=== PATIENT | female | born 1965 ===

== ENCOUNTER 2016-11-10 11:43 | Emergency (ER) | payer MEDICARE, OTHER ==
--- NOTE | 2016-11-10 12:50 | Emergency Department Report ---
ED Extremity Problem HPI - General Chief complaint: Extremity Injury, Lower Stated complaint: RT FOOT SWOLLEN Time Seen by Provider: 11/10/16 12:49 Source: patient Mode of arrival: Ambulatory Limitations: Physical Limitation - Related Data Previous Rx's Medication Instructions Recorded Last Taken Type Azithromycin [Zithromax TAB] 500 mg PO QDAY #3 tablet 09/24/13 Unknown Rx HYDROcodone/APAP 5-325 [[place] 1 each PO Q6HR PRN #8 tablet 09/24/13 Unknown Rx 5/325 mg] Levofloxacin [Levaquin] 500 mg PO QDAY #10 tablet 06/09/14 Unknown Rx Sertraline [Zoloft] 50 mg PO QAM #30 tablet 06/09/14 Unknown Rx Ciprofloxacin HCl [Cipro] 500 mg PO Q12H #14 tab 08/21/14 Unknown Rx HYDROcodone/APAP 5-325 [[place] 1 each PO Q6HR PRN #16 tablet 08/21/14 Unknown Rx 5-325 mg TAB] Diclofenac Sodium 50 mg PO Q8HRT PRN #30 tablet.dr 02/08/16 Unknown Rx Indomethacin [Indocin] 25 mg PO Q8H #21 capsule 11/10/16 Unknown Rx Prednisone [predniSONE 10 mg 10 mg PO .TAPER #1 tab.ds.pk 11/10/16 Unknown Rx (6-Day Pack, 21 Tabs)] Allergies Allergy/AdvReac Type Severity Reaction Status Date / Time Penicillins Allergy Rash Verified 11/10/16 12:02 ED Review of Systems ROS: Stated complaint: RT FOOT SWOLLEN Other details as noted in HPI ED Past Medical Hx - Past Medical History Hx Psychiatric Treatment: Yes (bipolar / [facility]) Hx Asthma: Yes - Surgical History Additional Surgical History: TUBAL LIGATION - Social History Smoking Status: Light Tobacco Smoker Substance Use Type: Alcohol, Prescribed - Medications Home Medications: Home Medications Medication Instructions Recorded Confirmed Last Taken Type Azithromycin [Zithromax TAB] 500 mg PO QDAY #3 tablet 09/24/13 02/08/16 Unknown Rx HYDROcodone/APAP 5-325 [[place] 1 each PO Q6HR PRN #8 tablet 09/24/13 02/08/16 Unknown Rx 5/325 mg] Levofloxacin [Levaquin] 500 mg PO QDAY #10 tablet 06/09/14 02/08/16 Unknown Rx Sertraline [Zoloft] 50 mg PO QAM #30 tablet 06/09/14 02/08/16 Unknown Rx Ciprofloxacin HCl [Cipro] 500 mg PO Q12H #14 tab 08/21/14 02/08/16 Unknown Rx HYDROcodone/APAP 5-325 [[place] 1 each PO Q6HR PRN #16 tablet 08/21/14 02/08/16 Unknown Rx 5-325 mg TAB] Diclofenac Sodium 50 mg PO Q8HRT PRN #30 tablet. 02/08/16 Unknown Rx Indomethacin [Indocin] 25 mg PO Q8H #21 capsule 11/10/16 Unknown Rx Prednisone [predniSONE 10 mg 10 mg PO .TAPER #1 tab.ds.pk 11/10/16 Unknown Rx (6-Day Pack, 21 Tabs)] ED Physical Exam - General Limitations: Physical Limitation ED Course Vital Signs 11/10/16 11/10/16 12:07 15:25 Temperature 98.4 F 98.1 F Pulse Rate 85 80 Respiratory 18 18 Rate Blood Pressure 121/57 Blood Pressure 118/60 [Right] O2 Sat by Pulse 100 100 Oximetry Critical care attestation.: If time is entered above; I have spent that time in minutes in the direct care of this critically ill patient, excluding procedure time. ED Disposition Clinical Impression: Gouty arthritis of toe of right foot Disposition: DISCHARGED TO HOME OR SELFCARE Is pt being admited?: No Condition: Stable Instructions: Acute Gouty Arthritis (ED) Prescriptions: Indomethacin [Indocin] 25 mg PO Q8H #21 capsule Prednisone [predniSONE 10 mg (6-Day Pack, 21 Tabs)] 10 mg PO .TAPER #1 tab.ds.pk Referrals: PRIMARY CARE, [Primary Care Provider] - 3-5 Days Forms: Work/School Release Form(ED)
[2016-11-10] MEDS ORDERED: TORADOL IM ONE (12:59)
[2016-11-10] MEDS ORDERED: DECADRON IV ONE (12:59)
[2016-11-10] MEDS ORDERED: DECADRON IM ONE (13:14)
--- NOTE | 2016-11-10 15:19 | Emergency Department Report ---
Entered by LEON TSANG, acting as scribe for OLGA LIDIA MOORE PA. ED Lower Extremity HPI - General Chief Complaint: Extremity Injury, Lower Stated Complaint: RT FOOT SWOLLEN Time Seen by Provider: 11/10/16 12:49 Source: patient Mode of arrival: Ambulatory Limitations: Physical Limitation - History of Present Illness Initial Comments: 51 year old female presents to the ED c/o right foot pain that began 4 days ago. Associated symptoms include swelling, but she denies fever, chills, cough, and pleuritic chest pain. Pt states that her pain radiates to her right knee and she has ambulatory improvement with a cane. She has a PMHx of asthma and psychiatric treatment. Reports EtOH abuse. Pt notes that she is allergic to Penicillin. MD Complaint: foot injury (right), other (atraumatic right foot pain swelling and redness) Onset/Timin -: days(s) Injury: Foot: Right Place: other (psychiatric facility) Severity: moderate Severity scale (0 -10): 7 Improves With: immobilization, other (walking with a cane) Worsens With: weight bearing (partially), movement, palpation Other Symptoms: other (swelling and pain radiates to her right knee) Associated Symptoms: swelling, able to partially bear weight, ambulatory (with use of a cane) - Related Data Previous Rx's Medication Instructions Recorded Last Taken Type Azithromycin [Zithromax TAB] 500 mg PO QDAY #3 tablet 09/24/13 Unknown Rx HYDROcodone/APAP 5-325 [[place] 1 each PO Q6HR PRN #8 tablet 09/24/13 Unknown Rx 5/325 mg] Levofloxacin [Levaquin] 500 mg PO QDAY #10 tablet 06/09/14 Unknown Rx Sertraline [Zoloft] 50 mg PO QAM #30 tablet 06/09/14 Unknown Rx Ciprofloxacin HCl [Cipro] 500 mg PO Q12H #14 tab 08/21/14 Unknown Rx HYDROcodone/APAP 5-325 [[place] 1 each PO Q6HR PRN #16 tablet 08/21/14 Unknown Rx 5-325 mg TAB] Diclofenac Sodium 50 mg PO Q8HRT PRN #30 tablet. 02/08/16 Unknown Rx Indomethacin [Indocin] 25 mg PO Q8H #21 capsule 11/10/16 Unknown Rx Prednisone [predniSONE 10 mg 10 mg PO .TAPER #1 tab.ds.pk 11/10/16 Unknown Rx (6-Day Pack, 21 Tabs)] Allergies Allergy/AdvReac Type Severity Reaction Status Date / Time Penicillins Allergy Rash Verified 11/10/16 12:02 ED Review of Systems Comment: All other systems reviewed and negative Constitutional: denies: chills, fever Respiratory: denies: cough, orthopnea, shortness of breath, SOB with exertion, SOB at rest, wheezing Cardiovascular: denies: chest pain (pleuritic chest pain), palpitations, dyspnea on exertion Gastrointestinal: denies: abdominal pain, nausea, vomiting, diarrhea Musculoskeletal: joint swelling (right foot), other (right foot pain that radiates to her right knee) Skin: other (mild redness to right foot) Neurological: denies: headache ED Past Medical Hx - Past Medical History Hx Psychiatric Treatment: Yes (bipolar / [facility]) Hx Asthma: Yes - Surgical History Additional Surgical History: TUBAL LIGATION - Social History Smoking Status: Light Tobacco Smoker Substance Use Type: Alcohol, Prescribed - Medications Home Medications: Home Medications Medication Instructions Recorded Confirmed Last Taken Type Azithromycin [Zithromax TAB] 500 mg PO QDAY #3 tablet 09/24/13 02/08/16 Unknown Rx HYDROcodone/APAP 5-325 [[place] 1 each PO Q6HR PRN #8 tablet 09/24/13 02/08/16 Unknown Rx 5/325 mg] Levofloxacin [Levaquin] 500 mg PO QDAY #10 tablet 06/09/14 02/08/16 Unknown Rx Sertraline [Zoloft] 50 mg PO QAM #30 tablet 06/09/14 02/08/16 Unknown Rx Ciprofloxacin HCl [Cipro] 500 mg PO Q12H #14 tab 08/21/14 02/08/16 Unknown Rx HYDROcodone/APAP 5-325 [[place] 1 each PO Q6HR PRN #16 tablet 08/21/14 02/08/16 Unknown Rx 5-325 mg TAB] Diclofenac Sodium 50 mg PO Q8HRT PRN #30 tablet. 02/08/16 Unknown Rx Indomethacin [Indocin] 25 mg PO Q8H #21 capsule 11/10/16 Unknown Rx Prednisone [predniSONE 10 mg 10 mg PO .TAPER #1 tab.ds.pk 11/10/16 Unknown Rx (6-Day Pack, 21 Tabs)] ED Physical Exam - General Limitations: Physical Limitation General appearance: alert, in no apparent distress - Head Head exam: Present: atraumatic, normocephalic - Eye Eye exam: Present: normal appearance - ENT ENT exam: Present: mucous membranes moist - Neck Neck exam: Present: normal inspection - Respiratory Respiratory exam: Present: normal lung sounds bilaterally. Absent: respiratory distress - Cardiovascular Cardiovascular Exam: Present: regular rate - GI/Abdominal GI/Abdominal exam: Present: soft. Absent: distended - Expanded Lower Extremity Exam Right Knee exam: Present: normal inspection, full ROM. Absent: tenderness, swelling, ecchymosis, erythema Lower Leg exam: Present: normal inspection, full ROM. Absent: tenderness (calf tenderness), swelling, erythema, palpable cord, Dallin's sign Ankle exam: Present: normal inspection, full ROM Foot/Toe exam: Present: full ROM, tenderness, swelling, ecchymosis (mild), erythema (mildly). Absent: deformity, crepidus Neuro vascular tendon exam: Present: no vascular compromise. Absent: pulse deficit, abnormal cap refill, motor deficit, sensory deficit, pallor Gait: Positive: antalgic - Back Exam Back exam: Present: normal inspection, full ROM - Neurological Exam Neurological exam: Present: alert, oriented X3 - Psychiatric Psychiatric exam: Present: normal affect, normal mood - Skin Skin exam: Present: warm (mildly), dry, intact ED Course Vital Signs 11/10/16 12:07 Temperature 98.4 F Pulse Rate 85 Respiratory 18 Rate Blood Pressure 121/57 O2 Sat by Pulse 100 Oximetry ED Lower Extremity MDM - Radiology Data PADMA GOMEZ Female : 1965 MedRec# [id number] 11/10/16 13:54 - Radiology Dept. Note by CORDELL [place] Acct Num: [id number] : 1965 Patient Age: 51 VASCULAR LAB.PRELIMINARY REPORT.RLE VENOUS DUPLEX DONE BEDSIDE. NO EVIDENCE OF DVT/SVT IN VESSELS VISUALIZED. Initialized on 11/10/16 13:54 - END OF NOTE ED Disposition Clinical Impression: Gouty arthritis of toe of right foot Disposition: DISCHARGED TO HOME OR SELFCARE Is pt being admited?: No Condition: Stable Instructions: Acute Gouty Arthritis (ED) Prescriptions: Indomethacin [Indocin] 25 mg PO Q8H #21 capsule Prednisone [predniSONE 10 mg (6-Day Pack, 21 Tabs)] 10 mg PO .TAPER #1 tab.ds.pk Referrals: PRIMARY CARE,MD [Primary Care Provider] - 3-5 Days Forms: Work/School Release Form(ED) This documentation as recorded by the TRINH beatty JASMINE,accurately reflects the service I personally performed and the decisions made by ,OLGA LIDIA MOORE PA.
[2016-11-10 15:26] VITALS: BP 118/60
--- NOTE | 2016-11-10 16:40 | Vascular Lab Report ---
Right Lower Extremity Venous Duplex Study: Reason for Exam: Right leg pain. Comments on the Right: All veins visualized are freely compressible without evidence of internal echogenicity. Flow is spontaneous and phasic throughout. No evidence of acute or chronic thrombus is seen in any of the vessels visualized. Comments on the Left: A limited duplex study was done of the proximal veins of the left lower extremity. All veins visualized are freely compressible without evidence of internal echogenicity. Flow is spontaneous and phasic throughout. No evidence of acute or chronic thrombus is seen in any of the vessels visualized. Impression: No evidence of acute or chronic deep venous thrombosis in the right lower extremity.
== END 2016-11-10 15:25 | disposition home or self-care (01) ==
LOC: ED 11:43
DX: M10.9 Gout, unspecified (principal); F20.9 Schizophrenia, unspecified; F17.200 Nicotine dependence, unspecified, uncomplicated
CPT/HCPCS: 93971; 96372; 99283; J1100; J1885

== ENCOUNTER 2019-05-27 15:27 | Emergency (ER) | payer OTHER, MEDICARE ==
[2019-05-27] MEDS ORDERED: ASPIRIN PO ONE (16:27)
--- NOTE | 2019-05-27 17:10 | XRay Report ---
CHEST 1 VIEW INDICATION: Chest Pain. COMPARISON: None. FINDINGS: Support devices: None. Heart: Within normal limits. Lungs/Pleura: No acute air space or interstitial disease. Additional findings: None. IMPRESSION: No acute abnormality. Signer Name: Alverto Milan MD Signed: 05/27/2019 5:05 PM Workstation Name: [id number]
[2019-05-27 17:56] LABS: BUN/Creatinine Ratio 29; Blood Urea Nitrogen 20 mg/dL (7-17); Calcium 9.3 mg/dL (8.4-10.2); Hemolysis Index 17
[2019-05-27 18:24] LABS: Basophils # (Auto) 0.1 K/mm3 (0.0-0.1); Eosinophils # (Auto) 0.1 K/mm3 (0.0-0.4); Eosinophils % (Auto) 1.1 % (0.0-4.3); Hematocrit 39.4 % (30.3-42.9); Hemoglobin 13.1 gm/dl (10.1-14.3); Lymphocytes # (Auto) 2.1 K/mm3 (1.2-5.4); Lymphocytes % (Auto) 22.7 % (13.4-35.0); Mean Corpuscular HGB Conc 33 % (30-34); Mean Corpuscular Volume 90 fl (79-97); Monocytes # (Auto) 0.6 K/mm3 (0.0-0.8); Monocytes % (Auto) 6.7 % (0.0-7.3); Platelet Count 252 K/mm3 (140-440); Red Cell Distribution Width 14.3 % (13.2-15.2)
[2019-05-27] MEDS ORDERED: TORADOL IM STA (21:43)
[2019-05-27] MEDS ORDERED: PROVENTIL IH ONE (21:43)
[2019-05-27] MEDS ORDERED: ASPIRIN ONE (21:44)
--- NOTE | 2019-05-27 21:54 | Emergency Department Report ---
ED General Adult HPI - General Chief complaint: Headache Stated complaint: CHEST PAIN Time Seen by Provider: 05/27/19 19:24 Source: patient Mode of arrival: Ambulatory Limitations: No Limitations - History of Present Illness -: Gradual, week(s) (2) Improves with: none Worsens with: none Associated Symptoms: denies other symptoms, chest pain. denies: cough, diaphoresis, loss of appetite, malaise, syncope, weakness Treatments Prior to Arrival: none - Related Data Previous Rx's Medication Instructions Recorded Last Taken Type Azithromycin [Zithromax TAB] 500 mg PO QDAY #3 tablet 09/24/13 Unknown Rx HYDROcodone/APAP 5-325 [[place] 1 each PO Q6HR PRN #8 tablet 09/24/13 Unknown Rx 5/325 mg] Sertraline [Zoloft] 50 mg PO QAM #30 tablet 06/09/14 Unknown Rx levoFLOXacin [Levaquin] 500 mg PO QDAY #10 tablet 06/09/14 Unknown Rx Ciprofloxacin HCl [Cipro] 500 mg PO Q12H #14 tab 08/21/14 Unknown Rx HYDROcodone/APAP 5-325 [[place] 1 each PO Q6HR PRN #16 tablet 08/21/14 Unknown Rx 5-325 mg TAB] Diclofenac Sodium 50 mg PO Q8HRT PRN #30 tablet. 02/08/16 Unknown Rx Indomethacin [Indocin] 25 mg PO Q8H #21 capsule 11/10/16 Unknown Rx Prednisone [predniSONE 10 mg 10 mg PO .TAPER #1 tab.ds.pk 11/10/16 Unknown Rx (6-Day Pack, 21 Tabs)] ALBUTEROL Inhaler (OR & NICU) 1 puff IH Q4-6H PRN #1 inha 05/27/19 Unknown Rx [ProAir HFA Inhaler] guaiFENesin/CODEINE [Robitussin AC] 5 ml PO Q6H PRN #120 ml 05/27/19 Unknown Rx predniSONE [Deltasone] 50 mg PO QDAY #5 tab 05/27/19 Unknown Rx Allergies Allergy/AdvReac Type Severity Reaction Status Date / Time Penicillins Allergy Rash Verified 11/10/16 12:02 ED Review of Systems ROS: Stated complaint: CHEST PAIN Other details as noted in HPI Comment: All other systems reviewed and negative ED Past Medical Hx - Past Medical History Previous Medical History?: Yes Hx Psychiatric Treatment: Yes (bipolar / [facility]) Hx Asthma: Yes - Surgical History Past Surgical History?: Yes Additional Surgical History: TUBAL LIGATION - Social History Smoking Status: Never Smoker Substance Use Type: Alcohol - Medications Home Medications: Home Medications Medication Instructions Recorded Confirmed Last Taken Type Azithromycin [Zithromax TAB] 500 mg PO QDAY #3 tablet 09/24/13 02/08/16 Unknown Rx HYDROcodone/APAP 5-325 [[place] 1 each PO Q6HR PRN #8 tablet 09/24/13 02/08/16 Unknown Rx 5/325 mg] Sertraline [Zoloft] 50 mg PO QAM #30 tablet 06/09/14 02/08/16 Unknown Rx levoFLOXacin [Levaquin] 500 mg PO QDAY #10 tablet 06/09/14 02/08/16 Unknown Rx Ciprofloxacin HCl [Cipro] 500 mg PO Q12H #14 tab 08/21/14 02/08/16 Unknown Rx HYDROcodone/APAP 5-325 [[place] 1 each PO Q6HR PRN #16 tablet 08/21/14 02/08/16 Unknown Rx 5-325 mg TAB] Diclofenac Sodium 50 mg PO Q8HRT PRN #30 tablet.dr 02/08/16 Unknown Rx Indomethacin [Indocin] 25 mg PO Q8H #21 capsule 11/10/16 Unknown Rx Prednisone [predniSONE 10 mg 10 mg PO .TAPER #1 tab.ds.pk 11/10/16 Unknown Rx (6-Day Pack, 21 Tabs)] ALBUTEROL Inhaler (OR & NICU) 1 puff IH Q4-6H PRN #1 inha 05/27/19 Unknown Rx [ProAir HFA Inhaler] guaiFENesin/CODEINE [Robitussin AC] 5 ml PO Q6H PRN #120 ml 05/27/19 Unknown Rx predniSONE [Deltasone] 50 mg PO QDAY #5 tab 05/27/19 Unknown Rx ED Physical Exam - General Limitations: No Limitations General appearance: alert, in no apparent distress - Head Head exam: Present: atraumatic, normocephalic - Eye Eye exam: Present: normal appearance, PERRL, EOMI Pupils: Present: normal accommodation - ENT ENT exam: Present: normal exam, mucous membranes moist, other (airway patent tongue and uvula are midline no erythema) - Neck Neck exam: Present: normal inspection - Respiratory Respiratory exam: Present: normal lung sounds bilaterally. Absent: respiratory distress, wheezes, rhonchi, accessory muscle use - Cardiovascular Cardiovascular Exam: Present: regular rate, normal rhythm. Absent: systolic murmur, diastolic murmur, rubs, gallop - GI/Abdominal GI/Abdominal exam: Present: soft, normal bowel sounds - Extremities Exam Extremities exam: Present: normal inspection - Back Exam Back exam: Present: normal inspection - Neurological Exam Neurological exam: Present: alert, oriented X3 - Psychiatric Psychiatric exam: Present: normal affect, normal mood - Skin Skin exam: Present: warm, dry, intact, normal color. Absent: rash ED Course Vital Signs 05/27/19 05/27/19 05/27/19 15:37 22:11 23:34 Temperature 97.9 F Pulse Rate 73 72 Respiratory 16 16 16 Rate Blood Pressure 131/71 Blood Pressure 141/76 [Right] O2 Sat by Pulse 99 100 Oximetry ED Medical Decision Making - Lab Data Result diagrams: 05/27/19 17:07 05/27/19 17:07 - Radiology Data Radiology results: report reviewed Findings [facility] [address] [place] [address] XRay Report Signed Patient: PADMA GOMEZ MR#: [id number] : 1965 Acct:[id number] Age/Sex: 53 / F ADM Date: 05/27/19 Loc: ED Attending Dr: Ordering Physician: RICHARD THOMAS MD Date of Service: 05/27/19 Procedure(s): XR chest 1V ap Accession Number(s): [id number] cc: RICHARD THOMAS MD Fluoro Time In Minutes: CHEST 1 VIEW INDICATION: Chest Pain. COMPARISON: None. FINDINGS: Support devices: None. Heart: Within normal limits. Lungs/Pleura: No acute air space or interstitial disease. Additional findings: None. IMPRESSION: No acute abnormality. Signer Name: Alverto Milan MD Signed: 05/27/2019 5:05 PM Workstation Name: [id number] Transcribed By: ES Dictated By: Alverto Milan MD Electronically Authenticated By: Alverto Milan MD Signed Date/Time: 05/27/19 6254 Critical care attestation.: If time is entered above; I have spent that time in minutes in the direct care of this critically ill patient, excluding procedure time. ED Disposition Clinical Impression: Cough, Chest pain Disposition: DC-01 TO HOME OR SELFCARE Is pt being admited?: No Does the pt Need Aspirin: No Condition: Stable Instructions: Chest Pain (ED), Pleurisy (ED), Noncardiac Chest Pain (ED) Prescriptions: predniSONE [Deltasone] 50 mg PO QDAY #5 tab ALBUTEROL Inhaler (OR & NICU) [ProAir HFA Inhaler] 1 puff IH Q4-6H PRN #1 inha PRN Reason: Cough guaiFENesin/CODEINE [Robitussin AC] 5 ml PO Q6H PRN #120 ml PRN Reason: Cough Referrals: SUDARHSAN SADLER [Other] - 3-5 Days Forms: Work/School Release Form(ED)
[2019-05-27 23:35] VITALS: BP 141/76
== END 2019-05-27 22:15 | disposition home or self-care (01) ==
LOC: ED 15:27
DX: R07.89 Other chest pain (principal); R05 Cough; F31.9 Bipolar disorder, unspecified; Z98.51 Tubal ligation status; Z79.899 Other long term (current) drug therapy; Z88.0 Allergy status to penicillin
CPT/HCPCS: 36415; 71045; 80048; 84484; 85025; 93005; 93010; 96372; 99284; J1885

== ENCOUNTER 2021-07-19 03:45 | Emergency (ER) | payer MEDICARE, OTHER ==
[2021-07-19 03:52] VITALS: BP 132/74
--- NOTE | 2021-07-19 06:55 | Emergency Department Report ---
ED ENT HPI - General Chief complaint: Nosebleed Stated complaint: NOSE BLEED/DIZZINESS Time Seen by Provider: 07/19/21 06:46 Source: patient Mode of arrival: Ambulatory Limitations: No Limitations - History of Present Illness Initial comments: Patient is 55 years old female with history of bipolar. Patient presented to the ER complaining of nose bleed since last night. Patient stated that she think that she has sinus infection since she has been sneezing and itching for the last few days. Patient was actively bleeding in the emergency room however the bleeding stopped. Patient denied any trauma, headache, fever or chills. MD complaint: epistaxis -: Last night Location: nose Severity: mild - Related Data Previous Rx's Medication Instructions Recorded Last Taken Type Azithromycin [Zithromax TAB] 500 mg PO QDAY #3 tablet 09/24/13 Unknown Rx HYDROcodone/APAP 5-325 [[place] 1 each PO Q6HR PRN #8 tablet 09/24/13 Unknown Rx 5/325 mg] Sertraline [Zoloft] 50 mg PO QAM #30 tablet 06/09/14 Unknown Rx levoFLOXacin [Levaquin] 500 mg PO QDAY #10 tablet 06/09/14 Unknown Rx Ciprofloxacin HCl [Cipro] 500 mg PO Q12H #14 tab 08/21/14 Unknown Rx HYDROcodone/APAP 5-325 [[place] 1 each PO Q6HR PRN #16 tablet 08/21/14 Unknown Rx 5-325 mg TAB] Diclofenac Sodium 50 mg PO Q8HRT PRN #30 tablet. 02/08/16 Unknown Rx Indomethacin [Indocin] 25 mg PO Q8H #21 capsule 11/10/16 Unknown Rx Prednisone [predniSONE 10 mg 10 mg PO .TAPER #1 tab.ds.pk 11/10/16 Unknown Rx (6-Day Pack, 21 Tabs)] Albuterol Mdi (or & Nicu Only) 1 puff IH Q4-6H PRN #1 inha 05/27/19 Unknown Rx [ProAir HFA Inhaler] guaiFENesin/CODEINE [Robitussin AC] 5 ml PO Q6H PRN #120 ml 05/27/19 Unknown Rx predniSONE [Deltasone] 50 mg PO QDAY #5 tab 05/27/19 Unknown Rx Allergies Allergy/AdvReac Type Severity Reaction Status Date / Time Penicillins Allergy Rash Verified 07/19/21 03:52 ED Dental HPI - General Chief complaint: Nosebleed Stated complaint: NOSE BLEED/DIZZINESS Time Seen by Provider: 07/19/21 06:46 Source: patient Mode of arrival: Ambulatory Limitations: No Limitations - Related Data Previous Rx's Medication Instructions Recorded Last Taken Type Azithromycin [Zithromax TAB] 500 mg PO QDAY #3 tablet 09/24/13 Unknown Rx HYDROcodone/APAP 5-325 [[place] 1 each PO Q6HR PRN #8 tablet 09/24/13 Unknown Rx 5/325 mg] Sertraline [Zoloft] 50 mg PO QAM #30 tablet 06/09/14 Unknown Rx levoFLOXacin [Levaquin] 500 mg PO QDAY #10 tablet 06/09/14 Unknown Rx Ciprofloxacin HCl [Cipro] 500 mg PO Q12H #14 tab 08/21/14 Unknown Rx HYDROcodone/APAP 5-325 [[place] 1 each PO Q6HR PRN #16 tablet 08/21/14 Unknown Rx 5-325 mg TAB] Diclofenac Sodium 50 mg PO Q8HRT PRN #30 tablet. 02/08/16 Unknown Rx Indomethacin [Indocin] 25 mg PO Q8H #21 capsule 11/10/16 Unknown Rx Prednisone [predniSONE 10 mg 10 mg PO .TAPER #1 tab.ds.pk 11/10/16 Unknown Rx (6-Day Pack, 21 Tabs)] Albuterol Mdi (or & Nicu Only) 1 puff IH Q4-6H PRN #1 inha 05/27/19 Unknown Rx [ProAir HFA Inhaler] guaiFENesin/CODEINE [Robitussin AC] 5 ml PO Q6H PRN #120 ml 05/27/19 Unknown Rx predniSONE [Deltasone] 50 mg PO QDAY #5 tab 05/27/19 Unknown Rx Allergies Allergy/AdvReac Type Severity Reaction Status Date / Time Penicillins Allergy Rash Verified 07/19/21 03:52 ED Review of Systems ROS: Stated complaint: NOSE BLEED/DIZZINESS Other details as noted in HPI Comment: All other systems reviewed and negative Constitutional: denies: chills, diaphoresis ENT: epistaxis, congestion Respiratory: cough. denies: shortness of breath Cardiovascular: denies: chest pain, palpitations, dyspnea on exertion Gastrointestinal: denies: abdominal pain, nausea, vomiting Musculoskeletal: denies: back pain Neurological: denies: headache, weakness, numbness, paresthesias ED Past Medical Hx - Past Medical History Hx Psychiatric Treatment: Yes (bipolar / MANIC) Hx Asthma: Yes - Surgical History Past Surgical History?: No Additional Surgical History: TUBAL LIGATION - Social History Smoking Status: Never Smoker Substance Use Type: Alcohol - Medications Home Medications: Home Medications Medication Instructions Recorded Confirmed Last Taken Type Azithromycin [Zithromax TAB] 500 mg PO QDAY #3 tablet 09/24/13 02/08/16 Unknown Rx HYDROcodone/APAP 5-325 [[place] 1 each PO Q6HR PRN #8 tablet 09/24/13 02/08/16 Unknown Rx 5/325 mg] Sertraline [Zoloft] 50 mg PO QAM #30 tablet 06/09/14 02/08/16 Unknown Rx levoFLOXacin [Levaquin] 500 mg PO QDAY #10 tablet 06/09/14 02/08/16 Unknown Rx Ciprofloxacin HCl [Cipro] 500 mg PO Q12H #14 tab 08/21/14 02/08/16 Unknown Rx HYDROcodone/APAP 5-325 [[place] 1 each PO Q6HR PRN #16 tablet 08/21/14 02/08/16 Unknown Rx 5-325 mg TAB] Diclofenac Sodium 50 mg PO Q8HRT PRN #30 tablet. 02/08/16 Unknown Rx Indomethacin [Indocin] 25 mg PO Q8H #21 capsule 11/10/16 Unknown Rx Prednisone [predniSONE 10 mg 10 mg PO .TAPER #1 tab.ds.pk 11/10/16 Unknown Rx (6-Day Pack, 21 Tabs)] Albuterol Mdi (or & Nicu Only) 1 puff IH Q4-6H PRN #1 inha 05/27/19 Unknown Rx [ProAir HFA Inhaler] guaiFENesin/CODEINE [Robitussin AC] 5 ml PO Q6H PRN #120 ml 05/27/19 Unknown Rx predniSONE [Deltasone] 50 mg PO QDAY #5 tab 05/27/19 Unknown Rx ED Physical Exam - General Limitations: No Limitations General appearance: alert, in no apparent distress - Head Head exam: Present: atraumatic, normocephalic, normal inspection - Eye Eye exam: Present: normal appearance - ENT ENT exam: Present: other (Dried blood to the right nostril. No active bleeding.) - Neck Neck exam: Present: normal inspection, full ROM. Absent: tenderness, meningismus - Respiratory Respiratory exam: Present: normal lung sounds bilaterally - Cardiovascular Cardiovascular Exam: Present: regular rate, normal rhythm, normal heart sounds - GI/Abdominal GI/Abdominal exam: Present: soft, normal bowel sounds. Absent: distended, tenderness, guarding, rebound, rigid, organomegaly, mass, bruit, pulsatile mass, hernia - Extremities Exam Extremities exam: Present: normal inspection, full ROM, normal capillary refill. Absent: tenderness - Back Exam Back exam: Present: normal inspection, full ROM. Absent: CVA tenderness (R), CVA tenderness (L) - Neurological Exam Neurological exam: Present: alert, oriented X3, CN II-XII intact, normal gait, reflexes normal. Absent: motor sensory deficit - Psychiatric Psychiatric exam: Present: normal mood - Skin Skin exam: Present: warm, intact, normal color ED Course Vital Signs 07/19/21 03:46 Temperature 98.1 F Pulse Rate 79 Respiratory 17 Rate Blood Pressure 132/74 [Right] O2 Sat by Pulse 99 Oximetry ED Medical Decision Making - Lab Data Result diagrams: 07/19/21 06:57 07/19/21 06:57 - Radiology Data Radiology results: report reviewed - Medical Decision Making Patient is 55 years old female with history of bipolar. Patient presented to the ER complaining of nose bleed since last night. Patient stated that she think that she has sinus infection since she has been sneezing and itching for the last few days. Patient was actively bleeding in the emergency room however the bleeding stopped. Patient denied any trauma, headache, fever or chills. Patient observed in the ER for more than 3 hours. No more epistaxis observed. Patient labs reviewed and is unremarkable. Chest x-ray is negative for acute finding. Patient given prescription for Robitussin for cough and advised to follow-up with her primary doctor in the next 2 to 3 days and to return to the ER if she develop any symptoms. Critical care attestation.: If time is entered above; I have spent that time in minutes in the direct care of this critically ill patient, excluding procedure time. ED Disposition Clinical Impression: Epistaxis, Upper respiratory infection Disposition: HOME / SELF CARE / HOMELESS Is pt being admited?: No Condition: Stable Instructions: Nosebleed, [id number], Upper Respiratory Infection, Adult
[2021-07-19 07:39] LABS: INR 0.95 (0.87-1.13)
[2021-07-19 07:43] LABS: Alanine Aminotransferase 13 units/L (7-56); Albumin 4.4 g/dL (3.9-5); Blood Urea Nitrogen 14 mg/dL (7-17); Hemolysis Index 223
[2021-07-19 07:44] LABS: BUN/Creatinine Ratio 28; Bilirubin,Direct < 0.2 mg/dL (0-0.2)
--- NOTE | 2021-07-19 08:04 | XRay Report ---
CHEST 2 VIEWS INDICATION: cough. COMPARISON: 05/27/2019 FINDINGS: Support devices: None. Heart: Within normal limits. Lungs/pleura: No acute air space or interstitial disease. No pneumothorax. Additional findings: None. IMPRESSION: No acute findings. Signer Name: Josse Bishop Jr, MD Signed: 07/19/2021 8:00 AM Workstation Name: [id number]
[2021-07-19 09:09] LABS: Hematocrit 38.8 % (30.3-42.9); Hemoglobin 12.2 gm/dl (10.1-14.3); Mean Corpuscular HGB Conc 32 % (30-34); Mean Corpuscular Volume 92 fl (79-97); Platelet Count 31 K/mm3 (140-440); Red Blood Count 4.22 M/mm3 (3.65-5.03); Red Cell Distribution Width 15.3 % (13.2-15.2)
[2021-07-19 15:43] LABS: Eosinophils # (Auto) 0.1 K/mm3 (0.0-0.4); Eosinophils % (Auto) 1.9 % (0.0-4.3); Monocytes # (Auto) 0.6 K/mm3 (0.0-0.8); Monocytes % (Auto) 9.8 % (0.0-7.3)
[2021-07-19 15:51] LABS: Basophils % (Auto) 0.7 % (0.0-1.8); Lymphocytes % (Auto) 16.5 % (13.4-35.0)
== END 2021-07-19 10:44 | disposition home or self-care (01) ==
LOC: ED 03:45
DX: R04.0 Epistaxis (principal); J06.9 Acute upper respiratory infection, unspecified
CPT/HCPCS: 36415; 71046; 80048; 80076; 85007; 85025; 85610; 99283

== ENCOUNTER 2022-01-01 17:33 | Emergency (ER) | payer MEDICARE, OTHER ==
--- NOTE | 2022-01-01 19:08 | Emergency Department Report ---
HPI - General Chief Complaint: Fall Time Seen by Provider: 01/01/22 18:59 - HPI HPI: Approximately 1 hour prior to arrival the patient was at work when suddenly she had a syncopal episode without any premonitory symptoms. Her loss of consciousness was brief lasting just a couple of seconds and since she woke up has been complaining of severe sharp left torso pain. She denies shortness of breath but it does hurt to breathe. She denies nausea vomiting fever chills headache focal weakness or any other associated symptoms. This is never happened to her before. She has not taken any medications for her pain. ED Past Medical Hx - Past Medical History Hx Psychiatric Treatment: Yes (bipolar / MANIC) Hx Asthma: Yes - Surgical History Past Surgical History?: No Additional Surgical History: TUBAL LIGATION - Family History Family history: no significant - Social History Smoking Status: Never Smoker Substance Use Type: Alcohol - Medications Home Medications: Home Medications Medication Instructions Recorded Confirmed Last Taken Type Azithromycin [Zithromax TAB] 500 mg PO QDAY #3 tablet 09/24/13 02/08/16 Unknown Rx HYDROcodone/APAP 5-325 [[place] 1 each PO Q6HR PRN #8 tablet 09/24/13 02/08/16 Unknown Rx 5/325 mg] Sertraline [Zoloft] 50 mg PO QAM #30 tablet 06/09/14 02/08/16 Unknown Rx levoFLOXacin [Levaquin] 500 mg PO QDAY #10 tablet 06/09/14 02/08/16 Unknown Rx Ciprofloxacin HCl [Cipro] 500 mg PO Q12H #14 tab 08/21/14 02/08/16 Unknown Rx HYDROcodone/APAP 5-325 [[place] 1 each PO Q6HR PRN #16 tablet 08/21/14 02/08/16 Unknown Rx 5-325 mg TAB] Diclofenac Sodium 50 mg PO Q8HRT PRN #30 tablet. 02/08/16 Unknown Rx Indomethacin [Indocin] 25 mg PO Q8H #21 capsule 11/10/16 Unknown Rx Prednisone [predniSONE 10 mg 10 mg PO .TAPER #1 tab.ds.pk 11/10/16 Unknown Rx (6-Day Pack, 21 Tabs)] Albuterol Mdi (or & Nicu Only) 1 puff IH Q4-6H PRN #1 inha 05/27/19 Unknown Rx [ProAir HFA Inhaler] guaiFENesin/CODEINE [Robitussin AC] 5 ml PO Q6H PRN #120 ml 05/27/19 Unknown Rx predniSONE [Deltasone] 50 mg PO QDAY #5 tab 05/27/19 Unknown Rx Oxymetazoline 0.05% [Afrin] 2 spray NS BID #1 bottle 07/19/21 Unknown Rx guaiFENesin/CODEINE [Robitussin AC] 10 ml PO TID PRN #100 ml 07/19/21 Unknown Rx Ibuprofen [Motrin] 800 mg PO Q8HR PRN 10 Days #30 01/01/22 Unknown Rx tablet ED Review of Systems ROS: Stated complaint: RIB INJURY Other details as noted in HPI Other: All other systems reviewed and negative. Physical Exam - Physical Exam Vital Signs: Vital Signs 01/01/22 17:46 Temperature 97 F L Pulse Rate 68 Respiratory 16 Rate Blood Pressure 138/81 [Left] O2 Sat by Pulse 97 Oximetry Physical Exam: Physical Exam: Constitutional: AAOX3. No acute distress. No diaphoresis. HENT: Normocephalic. Pupils equal and reactive. No throat edema or erythema. Neck: No neck rigidity or tenderness. Cardiovascular: Heart sounds: No murmur. Normal rate and regular rhythm. Pulses: Intact distal pulses. Lungs: No wheezing or rales. Chest wall: There is tenderness palpation on the left lateral torso without any crepitus or subcutaneous emphysema. This represent the patient's pain. Abdominal: No distension. No mass/pulsatile mass. No abdominal tenderness, guarding nor rebound. Back: No CVA TTP. Musculoskeletal: Normal range of motion. No edema, No calf TTP. Skin: Warm and dry. Neurological: Alert and oriented to person, place, and time. Psychiatric: Mood and affect normal. Normal cognition and memory. Normal judgement. ED Course Vital Signs 01/01/22 17:46 Temperature 97 F L Pulse Rate 68 Respiratory 16 Rate Blood Pressure 138/81 [Left] O2 Sat by Pulse 97 Oximetry - Reevaluation(s) Reevaluation #1: 01/01/22 19:27 EKG done interpreted at 1919 shows a rate of 75, normal. The rhythm is sinus rhythm, normal. There is no ST or T wave abnormalities. 01/01/22 21:03 The patient is feeling better while in the emergency department. Her x-rays of her left ribs and chest were within normal limits. Her cardiac enzymes as well as her CBC and chemistries were all within normal limits. I think she had a brief syncopal episode but now she is fine. She will return if any other issues arise. I do not think she has a PE because she is not tachycardic nor hypoxic. ED Medical Decision Making - Lab Data Result diagrams: 01/01/22 19:18 01/01/22 19:18 Critical care attestation.: If time is entered above; I have spent that time in minutes in the direct care of this critically ill patient, excluding procedure time. ED Disposition Clinical Impression: Syncope, Sprain of chest wall Disposition: 01 HOME / SELF CARE / HOMELESS Is pt being admited?: No Does the pt Need Aspirin: No Condition: Stable Instructions: Syncope, Syncope (ED) Prescriptions: Ibuprofen [Motrin] 800 mg PO Q8HR PRN 10 Days #30 tablet PRN Reason: Pain , Severe (7-10) Referrals: PRIMARY CARE, [Primary Care Provider] - 3-5 Days
--- NOTE | 2022-01-01 19:50 | XRay Report ---
. XR ribs UNI w PA chest 3+V LT INDICATION / CLINICAL INFORMATION: Trauma. COMPARISON: 07/19/2021 FINDINGS: SUPPORT DEVICES: None. HEART /PULMONARY VASCULATURE: No significant abnormality. LUNGS / PLEURA: No significant pulmonary or pleural abnormality. No pneumothorax. ADDITIONAL FINDINGS: No acute osseous findings. No acute or healing displaced left rib fracture. IMPRESSION: 1. No acute findings. No acute or healing displaced left rib fracture Signer Name: Woo Arellano MD Signed: 01/01/2022 7:46 PM Workstation Name: [id number]
[2022-01-01] MEDS ORDERED: IBUPROFEN 800 MG TAB PO ONE (19:57)
[2022-01-01 20:07] LABS: Alanine Aminotransferase 12 units/L (7-56); Albumin 4.5 g/dL (3.9-5); Blood Urea Nitrogen 18 mg/dL (7-17); Calcium 9.4 mg/dL (8.4-10.2); Hemolysis Index 4
[2022-01-01 20:09] LABS: BUN/Creatinine Ratio 30
[2022-01-01 20:18] LABS: Basophils # (Auto) 0.1 K/mm3 (0.0-0.1); Eosinophils # (Auto) 0.1 K/mm3 (0.0-0.4); Eosinophils % (Auto) 1.7 % (0.0-4.3); Hematocrit 35.4 % (30.3-42.9); Hemoglobin 12.5 gm/dl (10.1-14.3); Lymphocytes # (Auto) 1.6 K/mm3 (1.2-5.4); Lymphocytes % (Auto) 19.6 % (13.4-35.0); Mean Corpuscular HGB Conc 35 % (30-34); Mean Corpuscular Volume 89 fl (79-97); Monocytes # (Auto) 0.6 K/mm3 (0.0-0.8); Monocytes % (Auto) 7.6 % (0.0-7.3); Platelet Count 238 K/mm3 (140-440); Red Blood Count 3.97 M/mm3 (3.65-5.03); Red Cell Distribution Width 15.4 % (13.2-15.2)
[2022-01-01 20:20] VITALS: BP 130/77
== END 2022-01-01 21:28 | disposition home or self-care (01) ==
LOC: ED 17:33
DX: S29.011A Strain of muscle and tendon of front wall of thorax, initial encounter (principal); R55 Syncope and collapse; F17.200 Nicotine dependence, unspecified, uncomplicated; J45.909 Unspecified asthma, uncomplicated; X58.XXXA Exposure to other specified factors, initial encounter; Y93.89 Activity, other specified; Y92.89 Other specified places as the place of occurrence of the external cause; Y99.8 Other external cause status
CPT/HCPCS: 36415; 80053; 84484; 85025; 93005; 99283; 99284